=== PATIENT | female | born 1955 | race Caucasian/White ===

== ENCOUNTER 2020-03-03 16:19 | Emergency (ER) | payer MEDICAID ==
--- NOTE | 2020-03-03 17:37 | EDM.PDOC ---
ED HPI GENERAL MEDICAL PROBLEM - General Chief Complaint: Upper Extremity Injury/Pain Stated Complaint: FALL LEFT SIDE Time Seen by Provider: 03/03/20 16:32 Source of Information: Reports: Patient History Limitations: Reports: No Limitations - History of Present Illness INITIAL COMMENTS - FREE TEXT/NARRATIVE: Patient presents with left shoulder and neck pain after falling as she was trying to sit in a fold-up lawn chair. She fall on left shoulder and hit her head too. No LOC, vision change or head pain but neck hurts. She says she has scoliosis with some chronic neck pain but hurts worse now. Treatments [facility] [facility]: Reports: NSAIDS - Related Data Allergies Allergy/AdvReac Type Severity Reaction Status Date / Time No Known Allergies Allergy Verified 03/03/20 17:46 Home Meds: Home Meds . 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 in Jul 2015 Psychiatric History: Reports: Addiction, Anxiety, Depression Endocrine/Metabolic History: Reports: Diabetes, Type II, Other (See Below) Other Endocrine/Metabolic History: Pitutary micro adenoma Oncologic (Cancer) History: Reports: Cervix - Past Surgical History HEENT Surgical History: Reports: None Cardiovascular Surgical History: Reports: None Neurological Surgical History: Reports: None Musculoskeletal Surgical History: Reports: Carpal Tunnel, Shoulder Surgery Social & Family History - Family History Family Medical History: Unobtainable Oncologic: Reports: Brain - Tobacco Use Smoking Status *Q: Current Every Day Smoker Years of Tobacco use: 30 Packs/Tins Daily: 0.5 Used Tobacco, but Quit: No - Caffeine Use Caffeine Use: Reports: Coffee Other Caffeine Use: 8-15 cups - Recreational Drug Use Recreational Drug Use: Yes Review of Systems - Review of Systems Review Of Systems: See Below Constitutional: Denies: Chills, Diaphoresis, Fever, Weakness Eyes: Denies: Decreased Acuity, Vision Change Ears: Denies: Dizziness, Pain Nose: Denies: Epistaxis Mouth/Throat: Denies: Bleeding, Hoarse Voice Respiratory: Denies: Shortness of Breath, Wheezing, Cough Cardiovascular: Denies: Chest Pain, Syncope GI/Abdominal: Denies: Abdominal Pain, Diarrhea, Nausea, Vomiting Musculoskeletal: Reports: Neck Pain, Shoulder Pain, Joint Pain (left elbow and shoulder) Skin: Denies: Cyanosis, Jaundice, Mottled, Pallor, Diaphoresis Neurological: Denies: Confusion, Dizziness, Headache, Seizure, Syncope, Trouble Speaking, Difficulty Walking Psychiatric: Denies: Confusion ED EXAM, GENERAL - Physical Exam Exam: See Below Exam Limited By: No Limitations General Appearance: Alert, WD/WN, No Apparent Distress Eye Exam: Bilateral Eye: EOMI, Normal Inspection, PERRL Ears: Normal External Exam, Hearing Grossly Normal Nose: Normal Inspection, No Blood Throat/Mouth: Normal Inspection, Normal Lips, Normal Voice, No Airway Compromise Head: Atraumatic, Normocephalic Neck: Tender Lateral, Tender Midline Respiratory/Chest: No Respiratory Distress, Lungs Clear, Normal Breath Sounds, No Accessory Muscle Use, Chest Non-Tender Cardiovascular: Regular Rate, Rhythm, No Murmur GI/Abdominal: Normal Bowel Sounds, Soft, Non-Tender, No Organomegaly, No Distention Extremities: Normal Capillary Refill, Other (Pain to palpation of medial elbow, lateral and anterior shoulder. No clavicle tenderness.) Neurological: Alert, Oriented, CN II-XII Intact, Normal Cognition, No Motor/Sensory Deficits Psychiatric: Normal Affect, Normal Mood Skin Exam: Warm, Dry, Intact, Normal Color, No Rash Course - Vital Signs Last Recorded V/S: Last Vital Signs Temp 97.7 F 03/03/20 16:35 Pulse 100 03/03/20 16:35 Resp 20 03/03/20 16:35 BP 125/88 03/03/20 16:35 Pulse Ox 95 03/03/20 16:35 - Orders/Labs/Meds Orders: Active Orders 24 hr Category Date Time Status Cervical Spine wo Cont [CT] Stat Exams 03/03/20 16:52 Ordered Elbow Min 3V Lt [CR] Stat Exams 03/03/20 16:52 Ordered Shoulder Comp Lt [CR] Stat Exams 03/03/20 16:52 Ordered - Re-Assessments/Exams Free Text/Narrative Re-Assessment/Exam: 03/03/20 17:48 Patient is requesting something for pain. There is a trauma patient in radiology so a delay for her xrays. 03/03/20 18:[address] show no fractures. I discussed findings and treatment plan with patient. She is feeling better after the hydrocodone and ibuprofen. She takes ibuprofen for chronic pain and wonders if she can use hydrocodone for the new neck and shoulder pain for a few days. I will give Rx. Patient fitted with a sling and discharged to home in stable condition. Departure - Departure Time of Disposition: 18:47 Disposition: Home, Self-Care 01 Condition: Good Clinical Impression: Neck pain on left side Shoulder pain, acute Qualifiers: Laterality: left Qualified Code(s): M25.512 - Pain in left shoulder - Discharge Information Referrals: PCP,Not In Area [Primary Care Provider] - Additional Instructions: Wear the sling to support the arm for a couple days. Remove it at least 3-4 times a day for movement of arm and shoulder. Use your ibuprofen as directed for pain control. Take the Hydrocodone as directed when pain is not controlled adequately with the ibuprofen. Follow up with your PCP if this isn't resolving in 4-5 days. Recheck sooner if worsening. Sepsis Event Note (ED) - Evaluation Sepsis Screening Result: No Definite Risk - Focused Exam Vital Signs: Vital Signs Temp Pulse Resp BP Pulse Ox 03/03/20 16:35 97.7 F 100 20 125/88 95 - My Orders Last 24 Hours: My Active Orders 03/03/20 16:52 Cervical Spine wo Cont [CT] Stat Elbow Min 3V Lt [CR] Stat Shoulder Comp Lt [CR] Stat - Assessment/Plan Last 24 Hours: My Active Orders 03/03/20 16:52 Cervical Spine wo Cont [CT] Stat Elbow Min 3V Lt [CR] Stat Shoulder Comp Lt [CR] Stat
[2020-03-03 17:44] VITALS: BP 151/81; PULSE 94
[2020-03-03] MEDS ORDERED: Acetaminophen/HYDROcodone 325-5 MG Tab PO ONE ×2 (17:48→18:45)
[2020-03-03] MEDS ORDERED: Ibuprofen 600 MG Tab PO ONE (17:48)
--- NOTE | 2020-03-03 18:28 | CR ---
[id number] RAD/RAD Shoulder Left 2V Min EXAM: RAD Shoulder Left 2V Min CLINICAL DATA: TRAUMA COMPARISON: NO PREVIOUS SIMILAR EXAM IS AVAILABLE. FINDINGS: No fracture or dislocation is seen. There is no radiopaque foreign body in the soft tissues. There is no air in the soft tissues. There is no cortical thickening or periosteal reaction either. Interstitial pulmonary parenchymal fibrotic changes are seen IMPRESSION: NEGATIVE PLAIN FILM EXAM. Lamont Castellanos MD 03/03/20 [id number] Thank you for allowing us to participate in the care of your patient.
--- NOTE | 2020-03-03 18:28 | CR ---
[id number] RAD/RAD Elbow Left 3V Min EXAM: RAD Elbow Left 3V Min CLINICAL DATA: TRAUMA COMPARISON: NO PREVIOUS SIMILAR EXAM IS AVAILABLE. FINDINGS: No fracture or dislocation is seen. There is no radiopaque foreign body in the soft tissues. There is no air in the soft tissues. There is no cortical thickening or periosteal reaction either. IMPRESSION: NEGATIVE PLAIN FILM EXAM. Lamont Castellanos MD 03/03/20 [id number] Thank you for allowing us to participate in the care of your patient.
--- NOTE | 2020-03-03 18:35 | CT ---
[id number] CT/CT Cervical Spine WO IV Exam: CT Cervical Spine WO IV Clinical Data: TRAUMA COMPARISON: CORRELATION IS MADE WITH MRI BRAIN DATED AUGUST 04, 2015 FINDINGS: The pituitary fossa is enlarged The MRI described a pituitary macroadenoma There are advanced vascular calcifications There is evidence of chronic bilateral paranasal sinus opacification Interstitial pulmonary parenchymal fibrotic changes are seen There are degenerative changes. There is no fracture or subluxation Chronic changes of the temporomandibular joints also are seen IMPRESSION: NO FRACTURE OR SUBLUXATION Lamont Castellanos MD 03/03/20 [id number] Thank you for allowing us to participate in the care of your patient.
== END 2020-03-03 19:00 | disposition home or self-care (01) ==
LOC: KA.ED 16:19
DX: M25.512 Pain in left shoulder (principal); M54.2 Cervicalgia; I10 Essential (primary) hypertension; I25.10 Atherosclerotic heart disease of native coronary artery without angina pectoris; F17.210 Nicotine dependence, cigarettes, uncomplicated; Z86.73 Personal history of transient ischemic attack (TIA), and cerebral infarction without residual deficits
CPT/HCPCS: 72125; 73030-LT; 73080-LT; 99284; 99284-25; A9270-GY

== ENCOUNTER 2021-04-26 14:06 | Emergency (ER) | payer MEDICARE, MEDICAID ==
[2021-04-26] MEDS ORDERED: Sodium Chloride 0.9% 10 ML Syringe FLUSH PRN (14:11)
[2021-04-26 14:16] VITALS: BP 141/76; PULSE 80
[2021-04-26 14:29] LABS: ANION GAP 14.4 mmol/L (5-15); CHLORIDE,CL 93 mmol/L (98-107); SODIUM,NA 128 mmol/L (136-145)
--- NOTE | 2021-04-26 14:42 | EDM.PDOC ---
ED HPI GENERAL MEDICAL PROBLEM - General Chief Complaint: General Stated Complaint: ELEVATED POTASSIUM Time Seen by Provider: 04/26/21 14:26 Source of Information: Reports: Patient History Limitations: Reports: No Limitations - History of Present Illness INITIAL COMMENTS - FREE TEXT/NARRATIVE: Patient presents for elevated potassium. She is feeling fine; denies chest pain, dyspnea, pain in arms/neck/jaw, nausea, abdominal pain. She says she has had mildly elevated potassium at times and gets it checked every 6 months along with her biannual diabetes checkup. 5 days ago she had it checked in [place] but didn't get the result until yesterday showing 6.2; she was called in to recheck yesterday but didn't get results until today showing 6.1; they called her and told her to come to ER. - Related Data Allergies Allergy/AdvReac Type Severity Reaction Status Date / Time No Known Allergies Allergy Verified 04/26/21 14:16 Home Meds: Home Meds Aspirin 81 mg PO DAILY 04/26/21 [History] Baclofen 10 mg PO TID 04/26/21 [History] ClonazePAM [KlonoPIN] 0.5 mg PO BID 04/26/21 [History] Pravastatin [Pravachol] 20 mg PO DAILY 04/26/21 [History] lisinopriL [Lisinopril] 10 mg PO DAILY 04/26/21 [History] metFORMIN [Glucophage] 500 mg PO DAILY 04/26/21 [History] Past Medical History HEENT History: Reports: Macular Degeneration, Sinusitis Cardiovascular History: Reports: CAD, High Cholesterol, Hypertension Other Respiratory History: pt has smoker for 45 years 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 in Jul 2015 Psychiatric History: Reports: Addiction, Anxiety, Depression Endocrine/Metabolic History: Reports: Diabetes, Type II, Other (See Below) Other Endocrine/Metabolic History: Pitutary micro adenoma Oncologic (Cancer) History: Reports: Cervix - Past Surgical History HEENT Surgical History: Reports: None Cardiovascular Surgical History: Reports: None Neurological Surgical History: Reports: None Musculoskeletal Surgical History: Reports: Carpal Tunnel, Shoulder Surgery Social & Family History - Family History Family Medical History: Unobtainable Oncologic: Reports: Brain - Tobacco Use Tobacco Use Status *Q: Current Every Day Tobacco User Years of Tobacco use: 50 Packs/Tins Daily: 0.5 Second Hand Smoke Exposure: No - Caffeine Use Caffeine Use: Reports: Coffee Other Caffeine Use: 8-15 cups - Recreational Drug Use Recreational Drug Use: Yes Recreational Drug Type: Reports: Marijuana/Hashish ED ROS GENERAL - Review of Systems Review Of Systems: See Below Constitutional: Denies: Fever, Chills, Malaise, Weakness, Fatigue, Diaphoresis, Decreased Appetite HEENT: Denies: Throat Pain, Vision Change Respiratory: Denies: Shortness of Breath, Cough Cardiovascular: Denies: Chest Pain, Lightheadedness, Syncope Endocrine: Denies: Fatigue GI/Abdominal: Denies: Abdominal Pain, Diarrhea, Nausea, Vomiting : Denies: Dysuria, Flank Pain Musculoskeletal: Denies: Neck Pain, Shoulder Pain (except some chronic right scapular pain), Arm Pain, Back Pain, Hand Pain Skin: Denies: Cyanosis, Jaundice, Mottled, Pallor, Diaphoresis Neurological: Denies: Confusion, Dizziness, Headache, Seizure, Syncope, Trouble Speaking, Difficulty Walking Psychiatric: Denies: Agitation, Anxiety, Confusion Hematologic/Lymphatic: Denies: Easy Bleeding ED EXAM, GENERAL - Physical Exam Exam: See Below Exam Limited By: No Limitations General Appearance: Alert, WD/WN, No Apparent Distress Eye Exam: Bilateral Eye: EOMI, Normal Inspection, PERRL Ears: Normal External Exam, Hearing Grossly Normal Nose: Normal Inspection, No Blood Throat/Mouth: Normal Inspection, Normal Lips, Normal Voice, No Airway Compromise Head: Atraumatic, Normocephalic Neck: Normal Inspection, Full Range of Motion Respiratory/Chest: No Respiratory Distress, Lungs Clear (except for a brief, transient mild wheeze in left upper lung). No: Crackles, Rales, Rhonchi, Stridor Cardiovascular: No: Regular Rate, Rhythm, No Murmur GI/Abdominal: Normal Bowel Sounds, Soft, Non-Tender, No Organomegaly, No Distention Back Exam: Normal Inspection, Full Range of Motion. No: CVA Tenderness (L), CVA Tenderness (R) Extremities: Normal Inspection, Normal Range of Motion, Non-Tender, No Pedal Edema, Normal Capillary Refill Neurological: Alert, Oriented, Normal Cognition, No Motor/Sensory Deficits Psychiatric: Normal Affect, Normal Mood Skin Exam: Warm, Dry, Intact, Normal Color, No Rash Course - Vital Signs Last Recorded V/S: Last Vital Signs Temp 97.7 F 04/26/21 14:13 Pulse 80 04/26/21 14:13 Resp 20 04/26/21 14:13 BP 141/76 H 04/26/21 14:13 Pulse Ox 98 04/26/21 14:13 - Orders/Labs/Meds Orders: Active Orders 24 hr Category Date Time Status Peripheral IV Care [RC] . DIRECTED Care 04/26/21 14:11 Active Sodium Chloride 0.9% [Saline Flush] Med 04/26/21 14:11 Active 10 ml FLUSH Q8HR PRN Peripheral IV Insertion Adult [OM.PC] Routine Oth 04/26/21 14:11 Ordered EKG 12 Lead [EK] Stat Ther 04/26/21 14:10 Ordered Medication Orders Sodium Chloride (Sodium Chloride 0.9% 10 Ml Syringe) 10 ml FLUSH Q8HR PRN PRN Reason: keep vein open Labs: Laboratory Tests 04/26/21 04/26/21 Range/Units 14:05 14:05 WBC 7.04 (5.00-10.00) 10^3/uL RBC 4.44 (3.80-5.50) 10^6/uL Hgb 13.9 (12.0-16.0) g/dL Hct 41.4 (37.0-47.0) % MCV 93.2 H D (82.0-92.0) fL MCH 31.3 H (27.0-31.0) pg MCHC 33.6 (32.0-36.0) g/dL RDW 12.9 (11.5-14.5) % Plt Count 330 (150-400) 10^3/uL MPV 9.3 (7.4-10.4) fL Immature Gran % (Auto) 0.1 (0.0-5.0) % Neut % (Auto) 62.4 (50.0-70.0) % Lymph % (Auto) 28.3 (20.0-40.0) % [place] % (Auto) 4.7 (2.0-8.0) % Eos % (Auto) 4.1 H (1.0-3.0) % Baso % (Auto) 0.4 (0.0-1.0) % Neut # (Auto) 4.39 (2.50-7.00) 10^3/uL Lymph # (Auto) 1.99 (1.00-4.00) 10^3/uL [place] # (Auto) 0.33 (0.10-0.80) 10^3/uL Eos # (Auto) 0.29 (0.10-0.30) 10^3/uL Baso # (Auto) 0.03 (0.00-0.10) 10^3/uL Immature Gran # (Auto) 0.01 (0.00-0.50) 10^3/uL Sodium 128 L (136-145) mmol/L Potassium 4.2 (3.5-5.1) mmol/L Chloride 93 L (98-107) mmol/L Carbon Dioxide 24.8 (21.0-32.0) mmol/L Anion Gap 14.4 (5-15) mmol/L BUN 12 (7-18) mg/dL Creatinine 0.61 (0.51-1.17) mg/dL Est Cr Clr Drug Dosing 76.06 mL/min Estimated GFR (MDRD) > 60 mL/min Glucose 139 (70-140) mg/dL Calcium 9.1 (8.7-10.3) mg/dL Meds: Medications Generic Name Dose Route Start Last Admin Trade Name Freq PRN Reason Stop Dose Admin Sodium Chloride 10 ml 04/26/21 14:11 Sodium Chloride 0.9% 10 Ml Syringe FLUSH Q8HR PRN keep vein open - Re-Assessments/Exams Free Text/Narrative Re-Assessment/Exam: 04/26/21 14:59 EKG shows NSR with frequent PVCs. No T or ST abnormalities. Potassium today is 4.2 I discussed this with Dr. Jackson and we really don't have an explanation for the two elevated values and now normal. Possibly he molyzed between [place] and Juanis but very unlikely to have 2 separate labs do that. DR. MELENDEZ would like patient to follow up in clinic later this week or Saturday for recheck and I advised patient to follow in [place] if possible to expedite lab turn around. I discussed findings and recommendations with patient and she is discharged to home in stable condition. Departure - Departure Time of Disposition: 14:48 Disposition: Home, Self-Care 01 Condition: Good Clinical Impression: Serum potassium elevated - Discharge Information Instructions: Hyperkalemia, [id number] Referrals: Jenny Alba MD [Primary Care Provider] - Forms: ED Department Discharge Additional Instructions: Your potassium level is 4.2 today which is perfectly normal. Call your PCP this afternoon or tomorrow to make an appointment for later this or Saturday. It would be preferable if this appointment was in [place] so labs could be resulted right away instead of waiting for the next day. If any problems go to clinic or ER [facility]. Sepsis Event Note (ED) - Evaluation Sepsis Screening Result: No Definite Risk - Focused Exam Vital Signs: Vital Signs Temp Pulse Resp BP Pulse Ox 04/26/21 14:13 97.7 F 80 20 141/76 H 98 - My Orders Last 24 Hours: My Active Orders 04/26/21 14:10 EKG 12 Lead [EK] Stat 04/26/21 14:11 Peripheral IV Care [RC] . DIRECTED Sodium Chloride 0.9% [Saline Flush] 10 ml FLUSH Q8HR PRN Peripheral IV Insertion Adult [OM.PC] Routine - Assessment/Plan Last 24 Hours: My Active Orders 04/26/21 14:10 EKG 12 Lead [EK] Stat 04/26/21 14:11 Peripheral IV Care [RC] . DIRECTED Sodium Chloride 0.9% [Saline Flush] 10 ml FLUSH Q8HR PRN Peripheral IV Insertion Adult [OM.PC] Routine
== END 2021-04-26 15:15 | disposition home or self-care (01) ==
LOC: KA.ED 14:06
DX: E87.5 Hyperkalemia (principal); R74.8 Abnormal levels of other serum enzymes; I25.10 Atherosclerotic heart disease of native coronary artery without angina pectoris; E78.00 Pure hypercholesterolemia, unspecified; I10 Essential (primary) hypertension; E11.9 Type 2 diabetes mellitus without complications; Z86.73 Personal history of transient ischemic attack (TIA), and cerebral infarction without residual deficits; Z72.0 Tobacco use; Z79.82 Long term (current) use of aspirin; Z79.899 Other long term (current) drug therapy
CPT/HCPCS: 80048; 85025; 93005; 99284; 99285-25

== ENCOUNTER 2022-12-20 14:59 | Emergency (ER) | payer MEDICARE, MEDICAID ==
[2022-12-20] MEDS ORDERED: Sodium Chloride 0.9% 10 ML Syringe FLUSH PRN (15:10)
[2022-12-20] MEDS: Sodium Chloride 0.9% 1,000 ML IV ONE (15:17)
[2022-12-20 15:20] LABS: BASOPHILS ABSOLUTE AUTO 0.04 10^3/uL (0.00-0.10); BASOPHILS PERCENT AUTO 0.7 % (0.0-1.0); EOSINOPHILS ABSOLUTE AUTO 0.23 10^3/uL (0.10-0.30); EOSINOPHILS PERCENT AUTO 4.3 % (1.0-3.0); HEMATOCRIT 40.2 % (37.0-47.0); HEMOGLOBIN 13.6 g/dL (12.0-16.0); IMMATURE GRAN ABSOLUTE AUTO 0.01 10^3/uL (0.00-0.50); IMMATURE GRAN PERCENT AUTO 0.2 % (0.0-5.0); LYMPHOCYTES ABSOLUTE AUTO 1.42 10^3/uL (1.00-4.00); LYMPHOCYTES PERCENT AUTO 26.4 % (20.0-40.0); MEAN CORPUSCULAR HEMOGLOBIN 30.7 pg (27.0-31.0); MEAN CORPUSCULAR HGB CONC 33.8 g/dL (32.0-36.0); MEAN CORPUSCULAR VOLUME 90.7 fL (82.0-92.0); MEAN PLATELET VOLUME 8.7 fL (7.4-10.4); MONOCYTES ABSOLUTE AUTO 0.46 10^3/uL (0.10-0.80); MONOCYTES PERCENT AUTO 8.6 % (2.0-8.0); NEUTROPHILS ABSOLUTE AUTO 3.21 10^3/uL (2.50-7.00); NEUTROPHILS PERCENT AUTO 59.8 % (50.0-70.0); PLATELET COUNT,PLT 270 10^3/uL (150-400); RED BLOOD CELL COUNT 4.43 10^6/uL (3.80-5.50); RED CELL DISTRIBUTION WIDTH 11.8 % (11.5-14.5); WHITE BLOOD CELL COUNT,WBC 5.37 10^3/uL (5.00-10.00)
[2022-12-20 15:39] LABS: ALBUMIN 3.68 g/dL (3.40-5.00); ANION GAP 11.9 mmol/L (5-15); BILIRUBIN TOTAL 0.3 mg/dL (0.2-1.0); CARBON DIOXIDE,CO2 26.4 mmol/L (21.0-32.0); CREATININE 0.74 mg/dL (0.51-1.17); EST CRCL DRUG DOSING (CG) 61.02 mL/min; MAGNESIUM 1.6 mg/dL (1.8-2.4); POTASSIUM,K 4.3 mmol/L (3.5-5.1); PROTEIN TOTAL,TP 7.9 g/dL (6.4-8.2)
[2022-12-20 15:54] VITALS: BP 114/64; PULSE 70
== END 2022-12-20 16:12 | disposition home or self-care (01) ==
LOC: KA.ED 14:59
DX: E87.1 Hypo-osmolality and hyponatremia (principal); E83.42 Hypomagnesemia; I25.10 Atherosclerotic heart disease of native coronary artery without angina pectoris; E78.00 Pure hypercholesterolemia, unspecified; I10 Essential (primary) hypertension; F17.210 Nicotine dependence, cigarettes, uncomplicated; Z88.0 Allergy status to penicillin; Z91.048 Other nonmedicinal substance allergy status; Z88.8 Allergy status to other drugs, medicaments and biological substances; Z79.899 Other long term (current) drug therapy
CPT/HCPCS: 36415; 80053; 83605; 83735; 84484; 85025; 93010; 96360; 99284; 99285-25; J7030